=== PATIENT | female | born 1950 | race Caucasian/White ===

== ENCOUNTER → 2017-03-15 | Outpatient (CLI) | payer MEDICARE ==
[~2017-03-15] MED LIST: ASPI-498 OR; CIPR-217 PO; LEVO25TA6 PO; LISI-275 PO; METF-312 PO; OMEP20TA37 PO
[2017-03-15 09:36] LABS: Basophils # (auto) 0.1 uL; Basophils % (auto) 0.7 % (0.0-2.0); Eosinophils # (auto) 0.3 uL; Eosinophils % (auto) 3.4 % (0.0-7.0); Hematocrit 43.1 % (36.0-46.0); Hemoglobin 14.9 g/dL (12.2-16.2); Lymphocytes # (auto) 1.9 uL; Lymphocytes % (auto) 25.3 % (10.0-50.0); Mean Corpuscular Hemoglobin 35.1 pg (28.0-32.0); Mean Corpuscular Hgb Conc. 34.7 g/dL (32.0-36.0); Mean Corpuscular Volume 101.1 fL (80.0-100.0); Mean Platelet Volume 7.9 fL (7.4-10.4); Monocytes # (auto) 0.6 uL; Monocytes % (auto) 8.4 % (0.0-12.0); Neutrophils # (auto) 4.6 uL; Neutrophils % (auto) 62.2 % (37.0-80.0); Platelet Count (auto) 287 10^3/uL (140-450); Red Cell Distribution Width 13.2 % (11.6-16.0); SUSPECT VIEW TRANSMISSION; White Blood Cell 7.4 10^3/uL (4.4-10.8)
[2017-03-15 09:43] LABS: Urine Bilirubin Negative (Negative); Urine Blood Negative /uL (Negative); Urine Color Yellow (Yellow); Urine Glucose Normal (Normal); Urine Ketone Negative (Negative); Urine Mucus FEW (None Seen); Urine Nitrite Negative (Negative); Urine RBC <1 /hpf (0 - 4); Urine Squamous Epithelial Cell FEW /hpf (<5); Urine Urobilinogen Normal (Negative); Urine pH 6.5 (5.0-8.0)
[2017-03-15 09:53] LABS: Albumin 3.9 g/dL (3.4-5.0); BUN/Creatinine Ratio 14.4; Bilirubin, Total 0.5 mg/dL (0.2-1.0); Calcium 9.2 mg/dL (8.5-10.1); Potassium 4.1 mmol/L (3.5-5.1)
== END | disposition home or self-care (01) ==
LOC: LAB 08:21
PROVIDERS: ATTEND Internal Medicine
DX: Z00.00 Encounter for general adult medical examination without abnormal findings (principal); E78.5 Hyperlipidemia, unspecified; E55.9 Vitamin D deficiency, unspecified; I10 Essential (primary) hypertension; E11.9 Type 2 diabetes mellitus without complications
CPT/HCPCS: 36415; 80053; 80061; 81001; 82043; 82306; 83036; 84439; 84443; 84481; 85025

== ENCOUNTER → 2017-06-24 | Outpatient (CLI) | payer MEDICARE ==
[~2017-06-24] MED LIST changes: -METF-312 PO; +METF-370 PO
[2017-06-24 09:10] LABS: Cholesterol 263 mg/dL (< 200); HDL Cholesterol 40 mg/dL (40-59); LDL Cholesterol 209 mg/dL (< 100); Triglycerides 133 mg/dL (< 150)
== END | disposition home or self-care (01) ==
LOC: LAB 08:27
PROVIDERS: ATTEND Internal Medicine
DX: E78.2 Mixed hyperlipidemia (principal); R73.09 Other abnormal glucose
CPT/HCPCS: 36415; 80061; 82607; 83036; 84443

== ENCOUNTER → 2017-07-19 | Outpatient (CLI) | payer MEDICARE ==
[2017-07-19 08:48] LABS: Urine RBC None Seen /hpf (0 - 4)
[2017-07-19 09:42] LABS: Urine Bilirubin Negative (Negative); Urine Blood Negative /uL (Negative); Urine Color Yellow (Yellow); Urine Glucose Normal (Normal); Urine Ketone Negative (Negative); Urine Nitrite Negative (Negative); Urine Squamous Epithelial Cell MOD /hpf (<5); Urine Urobilinogen Normal (Negative); Urine pH 6.5 (5.0-8.0)
== END | disposition home or self-care (01) ==
LOC: LAB 08:41
PROVIDERS: ATTEND Internal Medicine
DX: N39.0 Urinary tract infection, site not specified (principal); E11.9 Type 2 diabetes mellitus without complications; I10 Essential (primary) hypertension
CPT/HCPCS: 81001

== ENCOUNTER → 2018-02-23 | Outpatient (CLI) | payer MEDICARE ==
[2018-02-23 09:03] LABS: Basophils # (auto) 0.1 uL; Basophils % (auto) 1.1 % (0.0-2.0); Eosinophils # (auto) 0.3 uL; Eosinophils % (auto) 4.3 % (0.0-7.0); Hematocrit 36.9 % (36.0-46.0); Hemoglobin 12.7 g/dL (12.2-16.2); Lymphocytes # (auto) 2.7 uL; Lymphocytes % (auto) 38.4 % (10.0-50.0); Mean Corpuscular Hemoglobin 34.8 pg (28.0-32.0); Mean Corpuscular Hgb Conc. 34.3 g/dL (32.0-36.0); Mean Corpuscular Volume 101.4 fL (80.0-100.0); Monocytes # (auto) 0.8 uL; Monocytes % (auto) 11.4 % (0.0-12.0); Neutrophils # (auto) 3.1 uL; Neutrophils % (auto) 44.8 % (37.0-80.0); Nucleated Red Blood Cells % 0.1 %; Platelet Count (auto) 270 10^3/uL (140-450); Red Blood Cells 3.64 10^6/uL (4.0-5.20); Red Cell Distribution Width 12.9 % (11.8-14.3)
[2018-02-23 09:56] LABS: Albumin 3.6 g/dL (3.4-5.0); BUN/Creatinine Ratio 18.6; Bilirubin, Total 0.5 mg/dL (0.2-1.0); Calcium 9.1 mg/dL (8.5-10.1); Potassium 4.1 mmol/L (3.5-5.1); Total Protein 7.4 g/dL (6.4-8.2)
[2018-02-23 10:26] LABS: Free T3 2.81 pg/mL (2.3-4.2); Free T4 (Free Thyroxine) 1.23 ng/dL (0.89-1.76)
== END | disposition home or self-care (01) ==
LOC: LAB 08:42
PROVIDERS: ATTEND Physician Assistant
DX: E03.9 Hypothyroidism, unspecified (principal); E78.2 Mixed hyperlipidemia; E11.9 Type 2 diabetes mellitus without complications; M94.20 Chondromalacia, unspecified site; K21.9 Gastro-esophageal reflux disease without esophagitis; Z87.891 Personal history of nicotine dependence; Z79.899 Other long term (current) drug therapy; Z79.82 Long term (current) use of aspirin
CPT/HCPCS: 36415; 80053; 80061; 82306; 83036; 84439; 84443; 84481; 85025

== ENCOUNTER → 2019-04-02 | Outpatient (CLI) | payer MEDICARE ==
[2019-04-02 09:26] LABS: Basophils # (auto) 0.1 uL; Eosinophils # (auto) 0.3 uL; Hematocrit 38.7 % (36.0-46.0); Mean Corpuscular Hemoglobin 34.6 pg (28.0-32.0); Monocytes # (auto) 0.6 uL; Nucleated Red Blood Cells % 0.1 %
[2019-04-02 09:28] LABS: Basophils % (auto) 2.2 % (0.0-2.0); Eosinophils % (auto) 6.3 % (0.0-7.0); Hemoglobin 13.2 g/dL (12.2-16.2); Lymphocytes % (auto) 38.4 % (10.0-50.0); Mean Corpuscular Volume 101.7 fL (80.0-100.0); Monocytes % (auto) 12.5 % (0.0-12.0); Neutrophils # (auto) 2.1 uL; Neutrophils % (auto) 40.6 % (37.0-80.0); Platelet Count (auto) 256 10^3/uL (140-450); Red Cell Distribution Width 12.9 % (11.8-14.3); White Blood Cell 5.1 10^3/uL (4.4-10.8)
[2019-04-02 09:43] LABS: Albumin 3.8 g/dL (3.4-5.0); Calcium 9.4 mg/dL (8.5-10.1); Potassium 4.5 mmol/L (3.5-5.1)
[2019-04-02 09:46] LABS: BUN/Creatinine Ratio 22.6; Bilirubin, Total 0.5 mg/dL (0.2-1.0); Total Protein 7.8 g/dL (6.4-8.2)
== END | disposition home or self-care (01) ==
LOC: LAB 08:43
PROVIDERS: ATTEND Physician Assistant
DX: E78.2 Mixed hyperlipidemia (principal); I12.9 Hypertensive chronic kidney disease with stage 1 through stage 4 chronic kidney disease, or unspecified chronic kidney disease; E11.22 Type 2 diabetes mellitus with diabetic chronic kidney disease; N18.3 Chronic kidney disease, stage 3 (moderate); E11.69 Type 2 diabetes mellitus with other specified complication; D53.9 Nutritional anemia, unspecified; R07.89 Other chest pain; R00.2 Palpitations; E03.9 Hypothyroidism, unspecified
CPT/HCPCS: 36415; 80053; 80061; 83036; 84443; 85025

== ENCOUNTER → 2019-12-20 | Emergency (ER) | payer MEDICARE ==
[~2019-12-20] VITALS: Ht 165.1 cm; Wt 83.9 kg
[~2019-12-20] MED LIST changes: -CIPR-217 PO; +CIPR500T4 PO; +LORazepam 0.5 MG TAB PO ONE
[2019-12-20 10:36] LABS: Basophils # (auto) 0.1 uL; Eosinophils # (auto) 0.2 uL; Lymphocytes # (auto) 1.9 uL; Lymphocytes % (auto) 24.7 % (10.0-50.0); Monocytes # (auto) 0.5 uL; Neutrophils # (auto) 5.1 uL; White Blood Cell 7.7 10^3/uL (4.4-10.8)
[2019-12-20 10:37] LABS: Basophils % (auto) 1.3 % (0.0-2.0); Eosinophils % (auto) 2.4 % (0.0-7.0); Hematocrit 40.9 % (36.0-46.0); Hemoglobin 13.9 g/dL (12.2-16.2); Mean Corpuscular Hemoglobin 34.8 pg (28.0-32.0); Mean Corpuscular Volume 102.3 fL (80.0-100.0); Monocytes % (auto) 6.2 % (0.0-12.0); Neutrophils % (auto) 65.4 % (37.0-80.0); Platelet Count (auto) 279 10^3/uL (140-450); Red Cell Distribution Width 13.5 % (11.8-14.3)
[2019-12-20 10:53] LABS: Albumin 3.6 g/dL (3.4-5.0); Anion Gap 6 (5-15); Blood Urea Nitrogen 15 mg/dL (7-18); Calcium 9.3 mg/dL (8.5-10.1); Carbon Dioxide 24 mmol/L (21-32); Chloride 110 mmol/L (98-107); Glucose 190 mg/dL (74-106); Potassium 4.2 mmol/L (3.5-5.1); Sodium 140 mmol/L (136-145)
[2019-12-20 10:59] LABS: Alanine Aminotransferase 37 U/L (13-56); Alkaline Phosphatase 93 U/L (45-117); Aspartate Aminotransferase 27 U/L (15-37); Bilirubin, Total 0.6 mg/dL (0.2-1.0); GFR African American 60 mL/min; GFR Non-African American 50 mL/min; Total Protein 7.7 g/dL (6.4-8.2)
[2019-12-20 12:07] LABS: Urine WBC None Seen /hpf (0 - 5)
[2019-12-20 12:40] LABS: Urine Bacteria FEW /hpf (None Seen); Urine Blood Negative /uL (Negative); Urine Specific Gravity 1.016 (1.001-1.035)
[2019-12-20 12:52] VITALS: BP 117/55
== END | disposition home or self-care (01) ==
LOC: ER 09:58
DX: R42 Dizziness and giddiness (principal); E11.65 Type 2 diabetes mellitus with hyperglycemia; K21.9 Gastro-esophageal reflux disease without esophagitis; E78.5 Hyperlipidemia, unspecified; I10 Essential (primary) hypertension; F17.210 Nicotine dependence, cigarettes, uncomplicated; Z90.710 Acquired absence of both cervix and uterus
CPT/HCPCS: 36415; 70450; 71046; 80053; 81001; 84484; 85025; 93005

== ENCOUNTER 2020-09-29 15:25 | Emergency (ER) | payer MEDICARE ==
[~2020-09-29] VITALS: Ht 165.1 cm; Wt 83.9 kg
[~2020-09-29 15:25] MED LIST changes: -LORazepam 0.5 MG TAB PO ONE
[2020-09-29 15:35] VITALS: BP 147/70
== END 2020-09-30 00:57 | disposition left against medical advice (07) ==
LOC: ER 15:40
DX: I24.9 Acute ischemic heart disease, unspecified (principal); E11.9 Type 2 diabetes mellitus without complications; K21.9 Gastro-esophageal reflux disease without esophagitis; I10 Essential (primary) hypertension; Z79.899 Other long term (current) drug therapy; Z79.82 Long term (current) use of aspirin; Z88.5 Allergy status to narcotic agent
CPT/HCPCS: 71046; 93005

== ENCOUNTER → 2020-11-07 | Outpatient (CLI) | payer MEDICARE ==
[2020-11-07 07:43] LABS: Eosinophils # (auto) 0.3 10 ^3/uL (0-0.8); Monocytes # (auto) 0.7 10 ^3/uL (0-1.3); Monocytes % (auto) 12.7 % (0.0-12.0); Neutrophils # (auto) 2.1 10 ^3/uL (1.6-8.6)
[2020-11-07 07:44] LABS: Basophils # (auto) 0 10 ^3/uL (0-0.2); Basophils % (auto) 0.7 % (0.0-2.0); Eosinophils % (auto) 5.6 % (0.0-7.0); Hematocrit 38.6 % (36.0-46.0); Hemoglobin 13.3 g/dL (12.2-16.2); Lymphocytes # (auto) 2.4 10 ^3/uL (0.4-5.4); Lymphocytes % (auto) 43.5 % (10.0-50.0); Mean Corpuscular Hemoglobin 34.7 pg (28.0-32.0); Mean Corpuscular Hgb Conc. 34.5 g/dL (32.0-36.0); Mean Corpuscular Volume 100.8 fL (80.0-100.0); Neutrophils % (auto) 37.5 % (37.0-80.0); Platelet Count (auto) 298 10^3/uL (140-450); Red Blood Cells 3.83 10^6/uL (4.0-5.20); Red Cell Distribution Width 13.3 % (11.8-14.3); White Blood Cell 5.6 10^3/uL (4.4-10.8)
[2020-11-07 08:11] LABS: Potassium 4.2 mmol/L (3.5-5.1)
[2020-11-07 08:30] LABS: Albumin 3.7 g/dL (3.4-5.0); BUN/Creatinine Ratio 19.3; Bilirubin, Total 0.7 mg/dL (0.2-1.0); Calcium 9.6 mg/dL (8.5-10.1)
== END | disposition home or self-care (01) ==
LOC: LAB 07:21
PROVIDERS: ATTEND Physician Assistant
DX: N18.30 Chronic kidney disease, stage 3 unspecified (principal); E03.9 Hypothyroidism, unspecified; D53.9 Nutritional anemia, unspecified; K21.9 Gastro-esophageal reflux disease without esophagitis; E55.9 Vitamin D deficiency, unspecified
CPT/HCPCS: 36415; 80053; 80061; 82306; 84443; 85025

== ENCOUNTER 2020-11-16 13:54 | Inpatient (IN) | payer MEDICARE ==
[~2020-11-16] VITALS: Ht 165.1 cm; Wt 98.9 kg
[2020-11-16] VITALS (30 sets, daily range): BP systolic 71–113; BP diastolic 29–75
[2020-11-16] MEDS ORDERED: HEPARIN 1,000 UNITS/ml 1ML VIAL IV ONE (14:15)
[2020-11-16] MEDS ORDERED: MORPHINE SULFATE 4 MG/ML SYR/VIAL IV ONE (14:15)
[2020-11-16] MEDS ORDERED: LIDOCAINE 2%HCL (LOCAL ANESTH.) INJ 20ML MDV ONE (14:34)
[2020-11-16] MEDS ORDERED: IODIXANOL 320MG/ML 100ML BTL IV ONE (14:34)
[2020-11-16 14:35] LABS: Basophils # (auto) 0 10 ^3/uL (0-0.2); Hemoglobin 12.8 g/dL (12.2-16.2); Lymphocytes # (auto) 2.3 10 ^3/uL (0.4-5.4); Monocytes # (auto) 0.7 10 ^3/uL (0-1.3); Neutrophils # (auto) 4.2 10 ^3/uL (1.6-8.6); Nucleated Red Blood Cells % 0.1 %
[2020-11-16 14:37] LABS: Basophils % (auto) 0.3 % (0.0-2.0); Eosinophils # (auto) 0.3 10 ^3/uL (0-0.8); Eosinophils % (auto) 3.4 % (0.0-7.0); Hematocrit 36.9 % (36.0-46.0); Lymphocytes % (auto) 30.5 % (10.0-50.0); Mean Corpuscular Hemoglobin 35.2 pg (28.0-32.0); Mean Corpuscular Hgb Conc. 34.7 g/dL (32.0-36.0); Mean Corpuscular Volume 101.4 fL (80.0-100.0); Monocytes % (auto) 9.6 % (0.0-12.0); Neutrophils % (auto) 56.2 % (37.0-80.0); Platelet Count (auto) 256 10^3/uL (140-450); Red Blood Cells 3.64 10^6/uL (4.0-5.20); Red Cell Distribution Width 13.4 % (11.8-14.3); White Blood Cell 7.6 10^3/uL (4.4-10.8)
[2020-11-16] MEDS ORDERED: MIDAZOLAM HCL 1MG/1ML-2 ML VIAL ONE (14:40)
[2020-11-16] MEDS ORDERED: ATROPINE SULF 1 MG/10ml SYR ONE ×2 (14:40→15:17)
[2020-11-16] MEDS ORDERED: ADENOSINE 6 MG/2 ML INJ IV ONE (14:40)
[2020-11-16] MEDS ORDERED: ANGIOMAX 250 MG VIAL IV ONE (14:40)
[2020-11-16] MEDS ORDERED: HEPARIN SODIUM (PORCINE) 5000 UNITS/ML 1ML VIAL ONE (14:40)
[2020-11-16] MEDS ORDERED: niCARdipine 25 MG/10 ML VIAL IV ONE (14:40)
[2020-11-16] MEDS ORDERED: fentaNYL CITRATE 100 MCG/2 ML VL ONE (14:40)
[2020-11-16] MEDS ORDERED: SODIUM CHL 0.9% 50 ML ONE (14:41)
[2020-11-16] MEDS ORDERED: EPINEPHrine HCL 1 MG/10 ML SYRG ONE (14:41)
[2020-11-16 14:51] LABS: Albumin 3.9 g/dL (3.4-5.0); Anion Gap 7 (5-15); Blood Urea Nitrogen 17 mg/dL (7-18); Calcium 8.9 mg/dL (8.5-10.1); Carbon Dioxide 20 mmol/L (21-32); Chloride 112 mmol/L (98-107); Glucose 117 mg/dL (74-106); Magnesium 2.2 mg/dL (1.6-2.6); Sodium 139 mmol/L (136-145)
[2020-11-16 14:56] LABS: Alanine Aminotransferase 28 U/L (13-56); Alkaline Phosphatase 109 U/L (45-117); Aspartate Aminotransferase 22 U/L (15-37); BUN/Creatinine Ratio 15.5; Bilirubin, Total 0.4 mg/dL (0.2-1.0); GFR African American 63 mL/min; GFR Non-African American 52 mL/min; INR 0.97 (0.9-1.15); Partial Thromboplastin Time 28.8 sec (23.0-31.2); Total Protein 8.1 g/dL (6.4-8.2)
[2020-11-16] MEDS ORDERED: EPTIFIBATIDE INJ (2MG/ML) 10ML VIAL IV ONE (15:05)
[2020-11-16] MEDS ORDERED: TICAGRELOR 90 MG TAB ONE (15:39)
[2020-11-16] MEDS ORDERED: ASPirin 325 MG TAB ONE (15:40)
[2020-11-16] MEDS ORDERED: NITROGLYCERIN 0.4 MG SL TAB SL PRN (16:00)
[2020-11-16] MEDS ORDERED: SODIUM CHLORIDE 0.9% 1,000 ML IV ONE (16:00)
[2020-11-16] MEDS ORDERED: NICOTINE 21MG/24 HR TOPICAL PATCH TD ONE (16:15)
[2020-11-16] MEDS ORDERED: SODIUM CHLORIDE 0.9% 1,000 ML IV SCH (16:30)
[2020-11-16] MEDS ORDERED: NOREPINEPHRINE 8 MG/250ML KIT 250 ML IV ONE (16:46)
[2020-11-16] MEDS: NOREPINEPHRINE 8 MG/250ML KIT 250 ML IV SCH (17:00)
[2020-11-16] MEDS ORDERED: MORPHINE SULF INJ 2 MG/ML SYRINGE 1ML ONE (21:31)
[2020-11-16] MEDS: MORPHINE SULF INJ 2 MG/ML SYRINGE 1ML IV PRN ×2 (21:35→21:54)
[2020-11-16] MEDS ORDERED: ATORVASTATIN 20 MG TAB PO SCH ×2 (22:00)
[2020-11-16] MEDS ORDERED: TICAGRELOR 90 MG TAB PO SCH (22:00)
[2020-11-17] VITALS (82 sets, daily range): BP systolic 76–153; BP diastolic 36–110
[2020-11-17 00:37] LABS: Basophils # (auto) 0.1 10 ^3/uL (0-0.2); Eosinophils # (auto) 0.2 10 ^3/uL (0-0.8); Eosinophils % (auto) 2.1 % (0.0-7.0); Hematocrit 32.4 % (36.0-46.0); Hemoglobin 11.2 g/dL (12.2-16.2); Lymphocytes # (auto) 2.4 10 ^3/uL (0.4-5.4); Lymphocytes % (auto) 32.3 % (10.0-50.0); Mean Corpuscular Hemoglobin 35.2 pg (28.0-32.0); Mean Corpuscular Hgb Conc. 34.6 g/dL (32.0-36.0); Mean Corpuscular Volume 101.9 fL (80.0-100.0); Monocytes # (auto) 0.9 10 ^3/uL (0-1.3); Monocytes % (auto) 11.3 % (0.0-12.0); Neutrophils % (auto) 53.3 % (37.0-80.0); Platelet Count (auto) 225 10^3/uL (140-450); Red Blood Cells 3.18 10^6/uL (4.0-5.20); Red Cell Distribution Width 13.3 % (11.8-14.3); White Blood Cell 7.6 10^3/uL (4.4-10.8)
[2020-11-17 00:54] LABS: Albumin 3.3 g/dL (3.4-5.0); BUN/Creatinine Ratio 15.5; Calcium 8.2 mg/dL (8.5-10.1); Potassium 4.3 mmol/L (3.5-5.1)
[2020-11-17 00:57] LABS: Bilirubin, Total 0.5 mg/dL (0.2-1.0); Total Protein 6.4 g/dL (6.4-8.2)
[2020-11-17] MEDS ORDERED: SODIUM BICARBONATE 8.4% INJ 50ML SYRINGE ONE (02:25)
[2020-11-17] MEDS: SODIUM BICARBONATE 50ML VIAL 50 ML in SOD CHL 0.45% 1,000 ML IV SCH ×2 (02:30→13:38)
[2020-11-17] MEDS: NOREPINEPHRINE 8 MG/250ML KIT 250 ML IV SCH ×3 (05:57→19:31)
[2020-11-17] MEDS ORDERED: ONDANSETRON HCL 4 MG/2 ML VIAL ONE (07:18)
[2020-11-17] MEDS: ASPirin 81 mg TAB PO SCH (09:14)
[2020-11-17] MEDS: TICAGRELOR 90 MG TAB PO SCH ×2 (09:15→21:35)
[2020-11-17] MEDS: POTASSIUM CHL 20MEQ/100ML 100 ML IV SCH (10:00)
[2020-11-17] MEDS ORDERED: ASPirin 81 mg TAB PO SCH (10:00)
[2020-11-17 10:33] LABS: Basophils # (auto) 0.1 10 ^3/uL (0-0.2); Eosinophils # (auto) 0 10 ^3/uL (0-0.8); Monocytes # (auto) 1.1 10 ^3/uL (0-1.3)
[2020-11-17 10:35] LABS: Basophils % (auto) 0.8 % (0.0-2.0); Eosinophils % (auto) 0.2 % (0.0-7.0); Hematocrit 35.1 % (36.0-46.0); Hemoglobin 11.8 g/dL (12.2-16.2); Lymphocytes # (auto) 1.3 10 ^3/uL (0.4-5.4); Lymphocytes % (auto) 10.6 % (10.0-50.0); Mean Corpuscular Hemoglobin 34.7 pg (28.0-32.0); Mean Corpuscular Hgb Conc. 33.5 g/dL (32.0-36.0); Mean Corpuscular Volume 103.5 fL (80.0-100.0); Monocytes % (auto) 9.4 % (0.0-12.0); Neutrophils # (auto) 9.3 10 ^3/uL (1.6-8.6); Nucleated Red Blood Cells % 0.2 %; Platelet Count (auto) 266 10^3/uL (140-450); Red Blood Cells 3.39 10^6/uL (4.0-5.20); Red Cell Distribution Width 13.4 % (11.8-14.3); White Blood Cell 11.8 10^3/uL (4.4-10.8)
[2020-11-17 10:53] LABS: Amylase 37 U/L (25-115); BUN/Creatinine Ratio 13.9; Calcium 8.4 mg/dL (8.5-10.1); Lipase 45 U/L (73-393); Potassium 4.1 mmol/L (3.5-5.1)
[2020-11-17] MEDS: SUCRALFATE 1 GM/10 ML ORAL SUSP PO SCH ×3 (11:27→21:35)
[2020-11-17] MEDS ORDERED: DEXTROSE (50%) 50ML SYRG IV PRN (12:30)
[2020-11-17] MEDS: cefTRIAXone 1GM/50ML D5W 50 ML IV SCH (13:38)
[2020-11-17] MEDS: NICOTINE 14 MG/24HR TOPICAL PATCH TD SCH (13:39)
[2020-11-17] MEDS: ONDANSETRON HCL 4 MG/2 ML VIAL IV PRN (14:48)
[2020-11-17] MEDS: ALPRAZolam 0.25 MG TAB PO PRN ×2 (14:48→22:13)
[2020-11-17 15:03] LABS: Urine WBC None Seen /hpf (0 - 5)
[2020-11-17 15:33] LABS: Urine Bacteria NONE SEEN /hpf (None Seen); Urine Blood Negative /uL (Negative); Urine Specific Gravity 1.004 (1.001-1.035)
[2020-11-17] MEDS: InsuLIN REG 1unit/0.01ml Soln (100units/ml) SC SCH ×2 (17:16→22:00)
[2020-11-17] MEDS: ACCU-CHEK COMFORT CURVE STRIP VI SCH ×2 (17:18→22:19)
[2020-11-17] MEDS ORDERED: SIMETHICONE 80 MG CHEWABLE TABLET PO PRN (17:45)
[2020-11-17] MEDS ORDERED: SODIUM BICARBONATE 50ML VIAL 50 ML in SOD CHL 0.45% 1,000 ML IV SCH (18:15)
[2020-11-17] MEDS: SIMETHICONE 80 MG CHEWABLE TABLET PO PRN (18:50)
[2020-11-17] MEDS: EZETIMIBE 10MG TAB PO SCH (21:36)
[2020-11-17] MEDS: MEPERIDINE HCL (25 MG/ML) 1ML VIAL IV PRN (21:37)
[2020-11-17] MEDS ORDERED: PANTOPRAZOLE 40 MG/10 ML VIAL INJ IV SCH (22:00)
[2020-11-18] VITALS (24 sets, daily range): BP systolic 104–172; BP diastolic 48–118
[2020-11-18] MEDS: MEPERIDINE HCL (25 MG/ML) 1ML VIAL IV PRN (02:05)
[2020-11-18] MEDS: ONDANSETRON HCL 4 MG/2 ML VIAL IV PRN (02:06)
[2020-11-18 04:26] LABS: Basophils # (auto) 0.1 10 ^3/uL (0-0.2); Basophils % (auto) 0.7 % (0.0-2.0); Eosinophils # (auto) 0 10 ^3/uL (0-0.8); Eosinophils % (auto) 0.3 % (0.0-7.0); Hematocrit 33.9 % (36.0-46.0); Hemoglobin 11.7 g/dL (12.2-16.2); Lymphocytes # (auto) 1.1 10 ^3/uL (0.4-5.4); Lymphocytes % (auto) 11.2 % (10.0-50.0); Mean Corpuscular Hgb Conc. 34.4 g/dL (32.0-36.0); Mean Corpuscular Volume 101.5 fL (80.0-100.0); Monocytes # (auto) 0.8 10 ^3/uL (0-1.3); Neutrophils # (auto) 7.4 10 ^3/uL (1.6-8.6); Neutrophils % (auto) 78.8 % (37.0-80.0); Platelet Count (auto) 208 10^3/uL (140-450); Red Blood Cells 3.34 10^6/uL (4.0-5.20); Red Cell Distribution Width 13.4 % (11.8-14.3); White Blood Cell 9.4 10^3/uL (4.4-10.8)
[2020-11-18 04:52] LABS: Potassium 3.8 mmol/L (3.5-5.1)
[2020-11-18 04:58] LABS: BUN/Creatinine Ratio 14.1; Bilirubin, Total 0.8 mg/dL (0.2-1.0); Calcium 8.1 mg/dL (8.5-10.1); Total Protein 6.8 g/dL (6.4-8.2)
[2020-11-18] MEDS: InsuLIN REG 1unit/0.01ml Soln (100units/ml) SC SCH ×4 (06:42→22:25)
[2020-11-18] MEDS: SUCRALFATE 1 GM/10 ML ORAL SUSP PO SCH ×4 (06:43→22:19)
[2020-11-18] MEDS: LEVOTHYROXINE SODIUM 25 MCG TAB PO SCH (06:44)
[2020-11-18] MEDS: ACCU-CHEK COMFORT CURVE STRIP VI SCH ×4 (06:44→22:25)
[2020-11-18] MEDS: cefTRIAXone 1GM/50ML D5W 50 ML IV SCH (08:15)
[2020-11-18] MEDS ORDERED: SODIUM BICARBONATE 50ML VIAL 50 ML in SOD CHL 0.45% 1,000 ML IV SCH (08:30)
[2020-11-18] MEDS: ASPirin 81 mg TAB PO SCH (09:00)
[2020-11-18] MEDS: POTASSIUM CHL 20MEQ/100ML 100 ML IV SCH (09:00)
[2020-11-18] MEDS: NICOTINE 14 MG/24HR TOPICAL PATCH TD SCH (09:01)
[2020-11-18] MEDS: EZETIMIBE 10MG TAB PO SCH (09:01)
[2020-11-18] MEDS: TICAGRELOR 90 MG TAB PO SCH ×2 (09:01→22:19)
[2020-11-18] MEDS: PANTOPRAZOLE 40 MG TAB PO SCH ×2 (10:00→22:19)
[2020-11-18] MEDS ORDERED: PIPERACILLIN-TAZOB 3.375GM 100 ML IV SCH (12:00)
[2020-11-18] MEDS: ALPRAZolam 0.25 MG TAB PO PRN (13:49)
[2020-11-18] MEDS ORDERED: levoFLOXacin 750MG 150 ML IV ONE (15:30)
[2020-11-18] MEDS ORDERED: FUROSEMIDE 40 MG/4 ML VIAL IV ONE (15:30)
[2020-11-18] MEDS ORDERED: DOCUSATE SOD 100 MG CAP PO ONE (15:30)
[2020-11-18] MEDS: SIMETHICONE 80 MG CHEWABLE TABLET PO PRN (16:30)
[2020-11-18] MEDS: BISACODYL 5 MG EC TAB PO PRN (17:45)
[2020-11-19] VITALS (12 sets, daily range): BP systolic 110–155; BP diastolic 42–84
[2020-11-19 05:04] LABS: Potassium 3.1 mmol/L (3.5-5.1)
[2020-11-19 05:08] LABS: Calcium 8.1 mg/dL (8.5-10.1)
[2020-11-19] MEDS: SUCRALFATE 1 GM/10 ML ORAL SUSP PO SCH ×4 (06:46→23:08)
[2020-11-19] MEDS: LEVOTHYROXINE SODIUM 25 MCG TAB PO SCH (06:47)
[2020-11-19] MEDS: ACCU-CHEK COMFORT CURVE STRIP VI SCH ×4 (06:47→22:51)
[2020-11-19] MEDS: InsuLIN REG 1unit/0.01ml Soln (100units/ml) SC SCH ×4 (06:47→22:00)
[2020-11-19] MEDS: SIMETHICONE 80 MG CHEWABLE TABLET PO PRN (08:31)
[2020-11-19] MEDS: ASPirin 81 mg TAB PO SCH (09:12)
[2020-11-19] MEDS: TICAGRELOR 90 MG TAB PO SCH ×2 (09:13→23:08)
[2020-11-19] MEDS: EZETIMIBE 10MG TAB PO SCH (09:13)
[2020-11-19] MEDS: PANTOPRAZOLE 40 MG TAB PO SCH ×2 (09:13→23:08)
[2020-11-19] MEDS: NICOTINE 14 MG/24HR TOPICAL PATCH TD SCH (09:13)
[2020-11-19] MEDS: levoFLOXacin 750MG 150 ML IV SCH (10:41)
[2020-11-19] MEDS: POTASSIUM CHL 20 Meq TABLET PO PRN (11:31)
[2020-11-19] MEDS: MEPERIDINE HCL (25 MG/ML) 1ML VIAL IV PRN (17:28)
[2020-11-19] MEDS: ALPRAZolam 0.25 MG TAB PO PRN (23:19)
[2020-11-20] MEDS: BISACODYL 5 MG EC TAB PO PRN (05:17)
[2020-11-20 05:30] VITALS: BP 138/70
[2020-11-20] MEDS: SUCRALFATE 1 GM/10 ML ORAL SUSP PO SCH ×4 (06:51→22:00)
[2020-11-20] MEDS: LEVOTHYROXINE SODIUM 25 MCG TAB PO SCH (06:52)
[2020-11-20] MEDS: ACCU-CHEK COMFORT CURVE STRIP VI SCH ×4 (06:52→22:00)
[2020-11-20] MEDS: InsuLIN REG 1unit/0.01ml Soln (100units/ml) SC SCH ×4 (06:52→22:00)
[2020-11-20 07:02] LABS: BUN/Creatinine Ratio 16.9; Calcium 8.5 mg/dL (8.5-10.1); Potassium 3.4 mmol/L (3.5-5.1)
[2020-11-20 08:00] VITALS: BP 130/57
[2020-11-20] MEDS: levoFLOXacin 750MG 150 ML IV SCH (10:59)
[2020-11-20] MEDS: ASPirin 81 mg TAB PO SCH (10:59)
[2020-11-20] MEDS: TICAGRELOR 90 MG TAB PO SCH ×2 (11:00→22:00)
[2020-11-20] MEDS: PANTOPRAZOLE 40 MG TAB PO SCH ×2 (11:00→22:00)
[2020-11-20] MEDS: EZETIMIBE 10MG TAB PO SCH (11:00)
[2020-11-20] MEDS: NICOTINE 14 MG/24HR TOPICAL PATCH TD SCH (12:16)
[2020-11-20 16:00] VITALS: BP 124/71
[2020-11-20] MEDS: POTASSIUM CHL 20 Meq TABLET PO PRN (17:16)
[2020-11-20 22:00] VITALS: BP 124/61
[2020-11-20] MEDS ORDERED: VANCOMYCIN 1GM/250ML 250 ML IV ONE (22:00)
[2020-11-20] MEDS: METOPROLOL TARTRATE 25 MG TAB PO SCH (22:00)
[2020-11-20] MEDS: VANCOMYCIN 1GM/250ML 250 ML IV SCH (23:16)
[2020-11-21 05:00] VITALS: BP 126/62
[2020-11-21] MEDS: ACCU-CHEK COMFORT CURVE STRIP VI SCH ×2 (06:41→12:17)
[2020-11-21] MEDS: LEVOTHYROXINE SODIUM 25 MCG TAB PO SCH (06:41)
[2020-11-21] MEDS: SUCRALFATE 1 GM/10 ML ORAL SUSP PO SCH ×2 (06:41→09:55)
[2020-11-21] MEDS: InsuLIN REG 1unit/0.01ml Soln (100units/ml) SC SCH ×2 (06:41→11:30)
[2020-11-21 06:52] LABS: Basophils # (auto) 0.1 10 ^3/uL (0-0.2); Basophils % (auto) 0.8 % (0.0-2.0); Eosinophils # (auto) 0.3 10 ^3/uL (0-0.8); Eosinophils % (auto) 4.8 % (0.0-7.0); Hemoglobin 11.6 g/dL (12.2-16.2); Lymphocytes # (auto) 1.4 10 ^3/uL (0.4-5.4); Lymphocytes % (auto) 19.9 % (10.0-50.0); Mean Corpuscular Hemoglobin 35.1 pg (28.0-32.0); Mean Corpuscular Hgb Conc. 35.2 g/dL (32.0-36.0); Mean Corpuscular Volume 99.8 fL (80.0-100.0); Monocytes # (auto) 0.8 10 ^3/uL (0-1.3); Monocytes % (auto) 12.2 % (0.0-12.0); Neutrophils # (auto) 4.3 10 ^3/uL (1.6-8.6); Neutrophils % (auto) 62.3 % (37.0-80.0); Platelet Count (auto) 274 10^3/uL (140-450); Red Blood Cells 3.31 10^6/uL (4.0-5.20); Red Cell Distribution Width 12.9 % (11.8-14.3); White Blood Cell 6.9 10^3/uL (4.4-10.8)
[2020-11-21 07:03] LABS: Potassium 3.7 mmol/L (3.5-5.1)
[2020-11-21 07:17] LABS: BUN/Creatinine Ratio 11.2; Calcium 8.7 mg/dL (8.5-10.1)
[2020-11-21 08:00] VITALS: BP 119/61
[2020-11-21] MEDS: VANCOMYCIN 1GM/250ML 250 ML IV SCH (09:53)
[2020-11-21] MEDS: TICAGRELOR 90 MG TAB PO SCH (09:53)
[2020-11-21] MEDS: ASPirin 81 mg TAB PO SCH (09:53)
[2020-11-21] MEDS: EZETIMIBE 10MG TAB PO SCH (09:53)
[2020-11-21] MEDS: METOPROLOL TARTRATE 25 MG TAB PO SCH (09:54)
[2020-11-21] MEDS: PANTOPRAZOLE 40 MG TAB PO SCH (09:54)
[2020-11-21] MEDS: NICOTINE 14 MG/24HR TOPICAL PATCH TD SCH (09:55)
[2020-11-21 10:00] VITALS: BP 119/61
[2020-11-21] MEDS ORDERED: VANCOMYCIN 1GM/250ML 250 ML IV ONE (10:00)
[2020-11-21] MEDS: MEPERIDINE HCL (25 MG/ML) 1ML VIAL IV PRN (10:12)
[2020-11-21] MEDS: levoFLOXacin 750MG 150 ML IV SCH (12:48)
== END 2020-11-21 13:30 | disposition home or self-care (01) | DRG 246 ==
LOC: ER 13:54 → EDBD 13:54 → ER 14:46 → TELE 16:14 → CATH ICU 16:16 → CENTRAL 11-19 10:00 → TELE-CENTR 11-19 10:09
PROVIDERS: ADMIT Specialist; ATTEND Specialist
PROC: 027034Z Dilation of Coronary Artery, One Artery with Drug-eluting Intraluminal Device, Percutaneous Approach (ICD-10-PCS; principal; 2020-11-16)
PROC: 02C03ZZ Extirpation of Matter from Coronary Artery, One Artery, Percutaneous Approach (ICD-10-PCS; 2020-11-16)
PROC: 4A023N7 Measurement of Cardiac Sampling and Pressure, Left Heart, Percutaneous Approach (ICD-10-PCS; 2020-11-16)
PROC: B211YZZ Fluoroscopy of Multiple Coronary Arteries using Other Contrast (ICD-10-PCS; 2020-11-16)
PROC: B215YZZ Fluoroscopy of Left Heart using Other Contrast (ICD-10-PCS; 2020-11-16)
PROC: B240ZZ3 Ultrasonography of Single Coronary Artery, Intravascular (ICD-10-PCS; 2020-11-16)
PROC: 3E073PZ Introduction of Platelet Inhibitor into Coronary Artery, Percutaneous Approach (ICD-10-PCS; 2020-11-16)
PROC: B41FYZZ Fluoroscopy of Right Lower Extremity Arteries using Other Contrast (ICD-10-PCS; 2020-11-16)
DX: I21.19 ST elevation (STEMI) myocardial infarction involving other coronary artery of inferior wall (principal); J18.9 Pneumonia, unspecified organism; I50.21 Acute systolic (congestive) heart failure; J44.0 Chronic obstructive pulmonary disease with (acute) lower respiratory infection; Z20.822 Contact with and (suspected) exposure to COVID-19; E11.9 Type 2 diabetes mellitus without complications; F17.210 Nicotine dependence, cigarettes, uncomplicated; K21.9 Gastro-esophageal reflux disease without esophagitis; I11.0 Hypertensive heart disease with heart failure; I25.2 Old myocardial infarction; Z79.82 Long term (current) use of aspirin; Z79.890 Hormone replacement therapy; Z79.899 Other long term (current) drug therapy; Z90.710 Acquired absence of both cervix and uterus; Z82.49 Family history of ischemic heart disease and other diseases of the circulatory system; Z83.3 Family history of diabetes mellitus
CPT/HCPCS: 36415; 36600; 71045; 71250; 75710; 76700; 80048; 80053; 81001; 82150; 82805; 82962; 83690; 83735; 83880; 84484; 85025; 85610; 85730; 86850; 86900; 86901; 87081; 87086; 87426; 92928; 92973; 92978; 93005; 93306; 93458; 96361; 96374; 96375; 99152; 99291; C1874; G0378; J0153; J0696; J1815; J1956; J2250; J2405; J2543; J3480; Q9967

== ENCOUNTER 2020-11-24 10:44 | Inpatient (IN) | payer MEDICARE ==
[~2020-11-24] VITALS: Ht 162.6 cm; Wt 85.1 kg
[2020-11-24] MEDS ORDERED: ONDANSETRON HCL 4 MG/2 ML VIAL IV ONE (11:00)
[2020-11-24] MEDS ORDERED: SODIUM CHLORIDE 0.9% 500 ML IVB ONE (11:00)
[2020-11-24 11:33] LABS: Albumin 3.2 g/dL (3.4-5.0); Calcium 8.6 mg/dL (8.5-10.1); Potassium 3.5 mmol/L (3.5-5.1)
[2020-11-24 11:35] LABS: Basophils # (auto) 0.1 10 ^3/uL (0-0.2); Basophils % (auto) 1.1 % (0.0-2.0); Eosinophils # (auto) 0.3 10 ^3/uL (0-0.8); Hematocrit 33.7 % (36.0-46.0); Hemoglobin 11.6 g/dL (12.2-16.2); Lymphocytes # (auto) 1.5 10 ^3/uL (0.4-5.4); Lymphocytes % (auto) 23.2 % (10.0-50.0); Mean Corpuscular Hemoglobin 34.6 pg (28.0-32.0); Mean Corpuscular Hgb Conc. 34.4 g/dL (32.0-36.0); Mean Corpuscular Volume 100.5 fL (80.0-100.0); Monocytes # (auto) 0.9 10 ^3/uL (0-1.3); Monocytes % (auto) 14.2 % (0.0-12.0); Neutrophils # (auto) 3.7 10 ^3/uL (1.6-8.6); Neutrophils % (auto) 56.5 % (37.0-80.0); Platelet Count (auto) 310 10^3/uL (140-450); Red Blood Cells 3.35 10^6/uL (4.0-5.20); Red Cell Distribution Width 13.6 % (11.8-14.3); White Blood Cell 6.6 10^3/uL (4.4-10.8)
[2020-11-24 11:37] LABS: BUN/Creatinine Ratio 11.8; Bilirubin, Total 0.4 mg/dL (0.2-1.0); Total Protein 7.4 g/dL (6.4-8.2)
[2020-11-24] MEDS ORDERED: PIPERACILLIN-TAZOB 3.375GM 100 ML IV ONE (11:45)
[2020-11-24] MEDS ORDERED: MORPHINE SULFATE 4 MG/ML SYR/VIAL IV ONE (12:15)
[2020-11-24] MEDS ORDERED: NITROGLYCERIN 0.4 MG SL TAB SL PRN ×2 (13:15→14:45)
[2020-11-24] MEDS ORDERED: MORPHINE SULF INJ 2 MG/ML SYRINGE 1ML IV PRN ×3 (13:15→14:45)
[2020-11-24] MEDS ORDERED: LISI-646 PO (14:10)
[2020-11-24] MEDS ORDERED: MET25T PO (14:10)
[2020-11-24] MEDS ORDERED: EZET-10 PO (14:10)
[2020-11-24] MEDS ORDERED: ERGO1CAP12 PO (14:10)
[2020-11-24] MEDS ORDERED: CLOP75TA28 PO (14:10)
[2020-11-24] MEDS ORDERED: PANT40T PO (14:10)
[2020-11-24] MEDS ORDERED: LEVO75TA6 PO (14:10)
[2020-11-24] MEDS ORDERED: IBUP800T27 PO (14:10)
[2020-11-24] MEDS ORDERED: LEVO-28 PO (14:10)
[2020-11-24] MEDS ORDERED: BISA1TAB6 PO (14:12)
[2020-11-24] MEDS ORDERED: metroNIDAZOLE 500MG/100ML 100 ML IV ONE (14:45)
[2020-11-24] MEDS ORDERED: ACETAMINOPHEN 325 MG TAB PO PRN (14:45)
[2020-11-24] MEDS ORDERED: LORazepam 0.5 MG TAB PO PRN (14:45)
[2020-11-24] MEDS ORDERED: DEXTROSE (50%) 50ML SYRG IV PRN (14:45)
[2020-11-24] MEDS ORDERED: ALUM & MAG HYDROX-SIMETH LIQ(MAALOX) 30 ML PO PRN (14:45)
[2020-11-24] MEDS ORDERED: GEMFIBROZIL 600 MG TAB PO ONE (14:45)
[2020-11-24] MEDS ORDERED: methylPREDNISolone SOD SUCC 40 MG/ML VL IV ONE (14:45)
[2020-11-24] MEDS ORDERED: PANTOPRAZOLE 40 MG/10 ML VIAL INJ IV ONE (14:45)
[2020-11-24] MEDS ORDERED: ONDANSETRON HCL 4 MG/2 ML VIAL IV PRN (14:45)
[2020-11-24] MEDS ORDERED: DOCUSATE SOD 100 MG CAP PO PRN (14:45)
[2020-11-24 14:48] LABS: Urine Bacteria NONE SEEN /hpf (None Seen); Urine Blood Negative /uL (Negative); Urine Specific Gravity 1.016 (1.001-1.035); Urine WBC 1 /hpf (0 - 5)
[2020-11-24] MEDS ORDERED: LACTULOSE 20Gm/30ML SOLN PO PRN (15:00)
[2020-11-24] MEDS: SODIUM CHLORIDE 0.9% 1,000 ML IV SCH (15:48)
[2020-11-24] MEDS: InsuLIN REG 1unit/0.01ml Soln (100units/ml) SC SCH ×2 (17:00→21:39)
[2020-11-24] MEDS: ACCU-CHEK COMFORT CURVE STRIP VI SCH ×2 (17:14→21:30)
[2020-11-24] MEDS: METOPROLOL TARTRATE 25 MG TAB PO SCH (21:29)
[2020-11-24] MEDS: metroNIDAZOLE 500MG/100ML 100 ML IV SCH (21:30)
[2020-11-24] MEDS: methylPREDNISolone SOD SUCC 40 MG/ML VL IV SCH (21:30)
[2020-11-24] MEDS: PANTOPRAZOLE 40 MG TAB PO SCH (21:30)
[2020-11-25] MEDS: metroNIDAZOLE 500MG/100ML 100 ML IV SCH ×3 (06:34→23:05)
[2020-11-25] MEDS: LEVOTHYROXINE SODIUM 25 MCG TAB PO SCH (06:35)
[2020-11-25] MEDS: ACCU-CHEK COMFORT CURVE STRIP VI SCH ×4 (06:35→23:07)
[2020-11-25] MEDS: InsuLIN REG 1unit/0.01ml Soln (100units/ml) SC SCH ×4 (06:36→22:00)
[2020-11-25 07:56] LABS: Basophils # (auto) 0 10 ^3/uL (0-0.2); Eosinophils # (auto) 0 10 ^3/uL (0-0.8); Hemoglobin 10.9 g/dL (12.2-16.2); Monocytes # (auto) 0.4 10 ^3/uL (0-1.3); Neutrophils # (auto) 6.4 10 ^3/uL (1.6-8.6)
[2020-11-25 07:57] LABS: Basophils % (auto) 0.5 % (0.0-2.0); Hematocrit 32.1 % (36.0-46.0); Lymphocytes % (auto) 12.3 % (10.0-50.0); Mean Corpuscular Hemoglobin 34.1 pg (28.0-32.0); Mean Corpuscular Volume 100.4 fL (80.0-100.0); Neutrophils % (auto) 82.2 % (37.0-80.0); Nucleated Red Blood Cells % 0.1 %; Platelet Count (auto) 330 10^3/uL (140-450); Red Cell Distribution Width 13.4 % (11.8-14.3); White Blood Cell 7.8 10^3/uL (4.4-10.8)
[2020-11-25 08:09] LABS: Calcium 8.7 mg/dL (8.5-10.1); Magnesium 2.4 mg/dL (1.6-2.6); Potassium 3.9 mmol/L (3.5-5.1)
[2020-11-25 08:12] LABS: BUN/Creatinine Ratio 11.8; Bilirubin, Total 0.4 mg/dL (0.2-1.0); Phosphorus 2.8 mg/dL (2.5-4.90); Total Protein 7.1 g/dL (6.4-8.2)
[2020-11-25 08:24] LABS: INR 0.99 (0.9-1.15); Partial Thromboplastin Time 29.7 sec (23.0-31.2)
[2020-11-25] MEDS ORDERED: PANTOPRAZOLE 40 MG/10 ML VIAL INJ IV SCH (10:00)
[2020-11-25 10:03] LABS: Amphetamine Screen, Urine NEGATIVE (NEGATIVE); Barbiturate Scree,Urine NEGATIVE (NEGATIVE); Benzodiazephine Screen, Urine NEGATIVE (NEGATIVE); Cannabinoid Screen, Urine NEGATIVE (NEGATIVE); Cocaine Screen, Urine NEGATIVE (NEGATIVE); Opiate Scree,Urine NEGATIVE (NEGATIVE); Phencyclidine Screen, Urine NEGATIVE (NEGATIVE)
[2020-11-25] MEDS: SODIUM CHLORIDE 0.9% 1,000 ML IV SCH (10:18)
[2020-11-25] MEDS: ASPirin 81 mg TAB PO SCH (10:18)
[2020-11-25] MEDS: methylPREDNISolone SOD SUCC 40 MG/ML VL IV SCH (10:18)
[2020-11-25] MEDS: ENOXAPARIN SOD 40 MG/0.4 ML SYRINGE SC SCH ×2 (10:19→10:24)
[2020-11-25] MEDS: GEMFIBROZIL 600 MG TAB PO SCH (10:19)
[2020-11-25] MEDS: CHOLECALCIFEROL (VITD3) 2,000 UNIT CAP PO SCH (10:19)
[2020-11-25] MEDS: CLOPIDOGREL BISULFATE 75 MG TAB PO SCH (10:19)
[2020-11-25] MEDS: PANTOPRAZOLE 40 MG TAB PO SCH ×2 (10:19→23:07)
[2020-11-25] MEDS: LISINOPRIL 10 MG TAB PO SCH (10:24)
[2020-11-25] MEDS: METOPROLOL TARTRATE 25 MG TAB PO SCH ×2 (10:30→23:07)
[2020-11-25 21:42] VITALS: BP 150/63
[2020-11-25 22:00] VITALS: BP 150/63
[2020-11-26] MEDS: ACCU-CHEK COMFORT CURVE STRIP VI SCH ×2 (05:05→11:36)
[2020-11-26] MEDS: LEVOTHYROXINE SODIUM 25 MCG TAB PO SCH (05:05)
[2020-11-26] MEDS: metroNIDAZOLE 500MG/100ML 100 ML IV SCH ×2 (05:05→14:17)
[2020-11-26] MEDS: InsuLIN REG 1unit/0.01ml Soln (100units/ml) SC SCH ×2 (05:44→11:30)
[2020-11-26 06:06] VITALS: BP 135/68
[2020-11-26 07:19] LABS: BUN/Creatinine Ratio 16.5; Calcium 8.6 mg/dL (8.5-10.1); Magnesium 2.4 mg/dL (1.6-2.6); Potassium 3.7 mmol/L (3.5-5.1)
[2020-11-26 08:10] VITALS: BP 111/63
[2020-11-26] MEDS: ASPirin 81 mg TAB PO SCH (09:56)
[2020-11-26] MEDS: GEMFIBROZIL 600 MG TAB PO SCH (09:56)
[2020-11-26] MEDS: CLOPIDOGREL BISULFATE 75 MG TAB PO SCH (09:57)
[2020-11-26] MEDS: METOPROLOL TARTRATE 25 MG TAB PO SCH (09:57)
[2020-11-26] MEDS: CHOLECALCIFEROL (VITD3) 2,000 UNIT CAP PO SCH (09:58)
[2020-11-26] MEDS: PANTOPRAZOLE 40 MG TAB PO SCH (09:58)
[2020-11-26] MEDS: LISINOPRIL 10 MG TAB PO SCH (09:58)
[2020-11-26] MEDS: ENOXAPARIN SOD 40 MG/0.4 ML SYRINGE SC SCH (09:59)
[2020-11-26] MEDS ORDERED: LACT10SO3 PO (14:08)
[2020-11-26 15:09] VITALS: BP 116/82
== END 2020-11-26 16:40 | disposition home or self-care (01) | DRG 394 ==
LOC: ER 10:44 → TELE 13:09 → TELE-CENTR 11-25 21:43
PROVIDERS: ADMIT Emergency Medicine; ATTEND Internal Medicine
DX: K62.89 Other specified diseases of anus and rectum (principal); E44.0 Moderate protein-calorie malnutrition; K59.04 Chronic idiopathic constipation; K52.9 Noninfective gastroenteritis and colitis, unspecified; I25.5 Ischemic cardiomyopathy; E11.9 Type 2 diabetes mellitus without complications; D64.9 Anemia, unspecified; E03.9 Hypothyroidism, unspecified; I25.2 Old myocardial infarction; E78.5 Hyperlipidemia, unspecified; K21.9 Gastro-esophageal reflux disease without esophagitis; J44.9 Chronic obstructive pulmonary disease, unspecified; D75.89 Other specified diseases of blood and blood-forming organs; I25.10 Atherosclerotic heart disease of native coronary artery without angina pectoris; I11.0 Hypertensive heart disease with heart failure; I50.9 Heart failure, unspecified; K75.9 Inflammatory liver disease, unspecified; Z20.822 Contact with and (suspected) exposure to COVID-19; Z79.02 Long term (current) use of antithrombotics/antiplatelets; Z82.49 Family history of ischemic heart disease and other diseases of the circulatory system; Z83.3 Family history of diabetes mellitus; F17.210 Nicotine dependence, cigarettes, uncomplicated; Z90.710 Acquired absence of both cervix and uterus; Z95.5 Presence of coronary angioplasty implant and graft; E07.9 Disorder of thyroid, unspecified; Z88.5 Allergy status to narcotic agent; Z88.8 Allergy status to other drugs, medicaments and biological substances
CPT/HCPCS: 36415; 74176; 80048; 80053; 80061; 80307; 81001; 82962; 83036; 83690; 83735; 84100; 84484; 85025; 85610; 85730; 87040; 87081; 87086; 87088; 87426; 96365; 96366; 96375; C9113; G0378; J1815; J2405; J2543; J3490

== ENCOUNTER 2020-12-09 10:06 | Emergency (ER) | payer MEDICARE ==
[~2020-12-09] VITALS: Ht 165.1 cm; Wt 79.4 kg
[~2020-12-09 10:06] MED LIST changes: +BISA1TAB6 PO; -CIPR500T4 PO; +CLOP75TA28 PO; +ERGO1CAP12 PO; +EZET-10 PO; +IBUP800T27 PO; +LACT10SO3 PO; +LEVO-28 PO; -LEVO25TA6 PO; +LEVO75TA6 PO; -LISI-275 PO; +LISI20TA28 PO; +MET25T PO; -METF-370 PO; -OMEP20TA37 PO; +PANT40T PO
[2020-12-09 10:52] LABS: Basophils # (auto) 0 10 ^3/uL (0-0.2); Basophils % (auto) 0.6 % (0.0-2.0); Eosinophils # (auto) 0 10 ^3/uL (0-0.8); Monocytes # (auto) 0.6 10 ^3/uL (0-1.3); Neutrophils # (auto) 1.9 10 ^3/uL (1.6-8.6)
[2020-12-09 10:54] LABS: Eosinophils % (auto) 0.5 % (0.0-7.0); Hematocrit 34.7 % (36.0-46.0); Lymphocytes % (auto) 28.9 % (10.0-50.0); Mean Corpuscular Hemoglobin 34.7 pg (28.0-32.0); Mean Corpuscular Hgb Conc. 34.7 g/dL (32.0-36.0); Mean Corpuscular Volume 99.9 fL (80.0-100.0); Nucleated Red Blood Cells % 0.2 %; Red Blood Cells 3.48 10^6/uL (4.0-5.20); White Blood Cell 3.5 10^3/uL (4.4-10.8)
[2020-12-09 11:10] LABS: Albumin 3.2 g/dL (3.4-5.0); Anion Gap 10 (5-15); BUN/Creatinine Ratio 16.1; Blood Urea Nitrogen 18 mg/dL (7-18); Calcium 8.4 mg/dL (8.5-10.1); Carbon Dioxide 17 mmol/L (21-32); Chloride 109 mmol/L (98-107); GFR African American 62 mL/min; GFR Non-African American 51 mL/min; Glucose 95 mg/dL (74-106); Magnesium 2.1 mg/dL (1.6-2.6); Sodium 136 mmol/L (136-145)
[2020-12-09 11:15] LABS: Alanine Aminotransferase 17 U/L (13-56); Alkaline Phosphatase 104 U/L (45-117); Aspartate Aminotransferase 21 U/L (15-37); Bilirubin, Total 0.5 mg/dL (0.2-1.0); Total Protein 7.4 g/dL (6.4-8.2)
[2020-12-09 12:42] VITALS: BP 117/54
== END 2020-12-09 13:44 | disposition home or self-care (01) ==
LOC: ER 10:06
DX: J18.9 Pneumonia, unspecified organism (principal); F41.9 Anxiety disorder, unspecified; E11.9 Type 2 diabetes mellitus without complications; K21.9 Gastro-esophageal reflux disease without esophagitis; E78.5 Hyperlipidemia, unspecified; I10 Essential (primary) hypertension; Z90.49 Acquired absence of other specified parts of digestive tract; Z90.710 Acquired absence of both cervix and uterus; Z87.891 Personal history of nicotine dependence
CPT/HCPCS: 36415; 71045; 80053; 83735; 84484; 85025; 93005

== ENCOUNTER 2021-09-02 11:07 | Emergency (ER) | payer MEDICARE ==
[~2021-09-02] VITALS: Ht 165.1 cm; Wt 83.0 kg
[~2021-09-02 11:07] MED LIST changes: -LEVO-28 PO
[2021-09-02 11:11] VITALS: BP 142/70
[2021-09-02 14:09] LABS: Urine Bacteria FEW /hpf (None Seen); Urine Blood Negative /uL (Negative); Urine Specific Gravity 1.017 (1.001-1.035); Urine WBC 1 /hpf (0 - 5)
[2021-09-02 14:29] LABS: Alcohol, Urine < 3.0 mg/dL (0-10); Amphetamine Screen, Urine NEGATIVE (NEGATIVE); Barbiturate Scree,Urine NEGATIVE (NEGATIVE); Benzodiazephine Screen, Urine NEGATIVE (NEGATIVE); Cocaine Screen, Urine NEGATIVE (NEGATIVE); Opiate Scree,Urine NEGATIVE (NEGATIVE); Phencyclidine Screen, Urine NEGATIVE (NEGATIVE)
[2021-09-02 14:36] LABS: Cannabinoid Screen, Urine POSITIVE (NEGATIVE)
[2021-09-02 14:49] LABS: Hemoglobin 13.4 g/dL (12.2-16.2); Lymphocytes # (auto) 1.7 10 ^3/uL (0.4-5.4); Monocytes # (auto) 0.6 10 ^3/uL (0-1.3); White Blood Cell 6.8 10^3/uL (4.4-10.8)
[2021-09-02 14:51] LABS: Basophils # (auto) 0.1 10 ^3/uL (0-0.2); Basophils % (auto) 0.9 % (0.0-2.0); Eosinophils # (auto) 0.2 10 ^3/uL (0-0.8); Eosinophils % (auto) 2.3 % (0.0-7.0); Hematocrit 39.1 % (36.0-46.0); Mean Corpuscular Hemoglobin 35.2 pg (28.0-32.0); Mean Corpuscular Hgb Conc. 34.3 g/dL (32.0-36.0); Mean Corpuscular Volume 102.4 fL (80.0-100.0); Monocytes % (auto) 8.7 % (0.0-12.0); Neutrophils # (auto) 4.3 10 ^3/uL (1.6-8.6); Neutrophils % (auto) 63.1 % (37.0-80.0); Red Blood Cells 3.82 10^6/uL (4.0-5.20); Red Cell Distribution Width 13.1 % (11.8-14.3)
[2021-09-02 14:52] LABS: Potassium 4.4 mmol/L (3.5-5.1)
[2021-09-02 14:56] LABS: Albumin 3.9 g/dL (3.4-5.0); BUN/Creatinine Ratio 22.1; Calcium 9.2 mg/dL (8.5-10.1)
[2021-09-02 14:58] LABS: Bilirubin, Total 0.5 mg/dL (0.2-1.0)
[2021-09-02 15:33] LABS: Magnesium 2.5 mg/dL (1.6-2.6)
== END 2021-09-02 16:55 | disposition left against medical advice (07) ==
LOC: ER 11:07
DX: R10.32 Left lower quadrant pain (principal); R11.0 Nausea; I25.10 Atherosclerotic heart disease of native coronary artery without angina pectoris; J44.9 Chronic obstructive pulmonary disease, unspecified; E11.9 Type 2 diabetes mellitus without complications; K21.9 Gastro-esophageal reflux disease without esophagitis; E78.5 Hyperlipidemia, unspecified; I10 Essential (primary) hypertension; I25.2 Old myocardial infarction; E03.9 Hypothyroidism, unspecified; Z90.49 Acquired absence of other specified parts of digestive tract; Z90.710 Acquired absence of both cervix and uterus; Z90.89 Acquired absence of other organs; Z87.891 Personal history of nicotine dependence; Z79.82 Long term (current) use of aspirin; Z79.1 Long term (current) use of non-steroidal anti-inflammatories (NSAID); Z79.01 Long term (current) use of anticoagulants; Z79.899 Other long term (current) drug therapy; Z88.5 Allergy status to narcotic agent; Z88.8 Allergy status to other drugs, medicaments and biological substances
CPT/HCPCS: 36415; 71045; 74176; 80053; 80307; 81001; 83735; 84484; 85025; 93005

== ENCOUNTER 2021-11-30 13:27 | Emergency (ER) | payer MEDICARE, OTHER ==
[~2021-11-30] VITALS: Ht 165.1 cm; Wt 83.9 kg
[2021-11-30] MEDS ORDERED: ASPirin 81 mg TAB PO ONE (14:15)
[2021-11-30 14:32] LABS: Basophils # (auto) 0.1 10 ^3/uL (0-0.2); Basophils % (auto) 1.4 % (0.0-2.0); Eosinophils # (auto) 0.2 10 ^3/uL (0-0.8); Hemoglobin 12.7 g/dL (12.2-16.2); Lymphocytes # (auto) 2.2 10 ^3/uL (0.4-5.4); Neutrophils # (auto) 2.6 10 ^3/uL (1.6-8.6); Red Cell Distribution Width 13.3 % (11.8-14.3); White Blood Cell 5.8 10^3/uL (4.4-10.8)
[2021-11-30 14:35] LABS: Eosinophils % (auto) 3.1 % (0.0-7.0); Hematocrit 36.8 % (36.0-46.0); Lymphocytes % (auto) 38.5 % (10.0-50.0); Mean Corpuscular Hemoglobin 34.8 pg (28.0-32.0); Mean Corpuscular Hgb Conc. 34.5 g/dL (32.0-36.0); Mean Corpuscular Volume 100.9 fL (80.0-100.0); Monocytes # (auto) 0.7 10 ^3/uL (0-1.3); Monocytes % (auto) 12.1 % (0.0-12.0); Neutrophils % (auto) 44.9 % (37.0-80.0); Nucleated Red Blood Cells % 0.2 %; Red Blood Cells 3.65 10^6/uL (4.0-5.20)
[2021-11-30 14:44] LABS: Albumin 3.8 g/dL (3.4-5.0); Calcium 8.9 mg/dL (8.5-10.1); Potassium 4.2 mmol/L (3.5-5.1)
[2021-11-30 14:50] LABS: BUN/Creatinine Ratio 18.3; Bilirubin, Total 0.3 mg/dL (0.2-1.0); Total Protein 7.4 g/dL (6.4-8.2)
[2021-11-30 15:53] VITALS: BP 134/75
== END 2021-11-30 16:27 | disposition home or self-care (01) ==
LOC: ER 13:27
DX: R07.89 Other chest pain (principal); F41.9 Anxiety disorder, unspecified; J44.9 Chronic obstructive pulmonary disease, unspecified; E11.9 Type 2 diabetes mellitus without complications; K21.9 Gastro-esophageal reflux disease without esophagitis; E78.5 Hyperlipidemia, unspecified; I10 Essential (primary) hypertension; Z90.710 Acquired absence of both cervix and uterus; Z88.6 Allergy status to analgesic agent
CPT/HCPCS: 36415; 71045; 80053; 84484; 85025; 93005

== ENCOUNTER 2022-02-25 12:31 | Inpatient (IN) | payer OTHER ==
[~2022-02-25] VITALS: Ht 162.6 cm; Wt 84.8 kg
[2022-02-25] MEDS ORDERED: SODIUM CHLORIDE 0.9% 500 ML IVB ONE (13:00)
[2022-02-25] MEDS ORDERED: HYDROmorphone HCL 2 MG/ML VL/or syr IV ONE (13:00)
[2022-02-25] MEDS ORDERED: ONDANSETRON HCL 4 MG/2 ML VIAL IV ONE (13:00)
[2022-02-25 14:06] LABS: Basophils # (auto) 0.1 10 ^3/uL (0-0.2); Eosinophils # (auto) 0.1 10 ^3/uL (0-0.8); Hematocrit 38.6 % (36.0-46.0); Lymphocytes # (auto) 1.3 10 ^3/uL (0.4-5.4); Lymphocytes % (auto) 12.1 % (10.0-50.0); Neutrophils # (auto) 8.9 10 ^3/uL (1.6-8.6); Red Blood Cells 3.78 10^6/uL (4.0-5.20)
[2022-02-25 14:08] LABS: Basophils % (auto) 0.7 % (0.0-2.0); Hemoglobin 13.4 g/dL (12.2-16.2); Mean Corpuscular Hemoglobin 35.3 pg (28.0-32.0); Mean Corpuscular Hgb Conc. 34.6 g/dL (32.0-36.0); Mean Corpuscular Volume 102.2 fL (80.0-100.0); Monocytes # (auto) 0.6 10 ^3/uL (0-1.3); Monocytes % (auto) 5.5 % (0.0-12.0); Neutrophils % (auto) 80.7 % (37.0-80.0); Nucleated Red Blood Cells % 0.1 %; Red Cell Distribution Width 13.1 % (11.8-14.3)
[2022-02-25 14:21] LABS: Albumin 3.8 g/dL (3.4-5.0); BUN/Creatinine Ratio 20.7; Calcium 10.1 mg/dL (8.5-10.1)
[2022-02-25 14:24] LABS: Bilirubin, Total 0.5 mg/dL (0.2-1.0); Total Protein 7.8 g/dL (6.4-8.2)
[2022-02-25] MEDS ORDERED: metroNIDAZOLE 500MG/100ML 100 ML IV ONE (15:15)
[2022-02-25] MEDS ORDERED: NITROGLYCERIN 0.4 MG SL TAB SL PRN (16:30)
[2022-02-25] MEDS ORDERED: ACETAMINOPHEN 325 MG TAB PO PRN (16:30)
[2022-02-25] MEDS ORDERED: ONDANSETRON HCL 4 MG/2 ML VIAL IV PRN (16:30)
[2022-02-25] MEDS ORDERED: HYDROcodone-ACET 5/325MG TAB PO PRN (16:30)
[2022-02-25] MEDS ORDERED: MORPHINE SULFATE INJECTION 2 MG/ML SYRG IV PRN ×2 (16:30)
[2022-02-25] MEDS ORDERED: ERGOCALCIFEROL 50,000 UNIT(1.25MG) CAP PO SCH (16:45)
[2022-02-25] MEDS: SODIUM CHLORIDE 0.9% 1,000 ML IV SCH ×2 (17:04→23:03)
[2022-02-25] MEDS: PIPERACILLIN-TAZOB 3.375GM 100 ML IV SCH (18:09)
[2022-02-25 19:30] VITALS: BP 119/56
[2022-02-25 20:00] VITALS: BP 119/56
[2022-02-25] MEDS ORDERED: CALCIUM CARB 500 MG CHEW TAB PO PRN (20:00)
[2022-02-25] MEDS: CALCIUM CARB 500 MG CHEW TAB PO PRN (20:38)
[2022-02-25 22:00] VITALS: BP 110/52
[2022-02-25] MEDS: METOPROLOL TARTRATE 25 MG TAB PO SCH (22:00)
[2022-02-25] MEDS ORDERED: METF-370 PO (23:27)
[2022-02-26] MEDS: PIPERACILLIN-TAZOB 3.375GM 100 ML IV SCH ×3 (00:27→11:47)
[2022-02-26 05:34] VITALS: BP 120/49
[2022-02-26] MEDS ORDERED: LEVOTHYROXINE SODIUM 25 MCG TAB PO SCH (07:00)
[2022-02-26 07:26] LABS: Basophils # (auto) 0 10 ^3/uL (0-0.2); Basophils % (auto) 0.6 % (0.0-2.0); Eosinophils # (auto) 0.2 10 ^3/uL (0-0.8); Lymphocytes # (auto) 2.4 10 ^3/uL (0.4-5.4); Mean Corpuscular Hemoglobin 35.9 pg (28.0-32.0); Monocytes # (auto) 0.8 10 ^3/uL (0-1.3); Nucleated Red Blood Cells % 0.1 %; White Blood Cell 8.1 10^3/uL (4.4-10.8)
[2022-02-26 07:28] LABS: Eosinophils % (auto) 2.3 % (0.0-7.0); Hematocrit 33.4 % (36.0-46.0); Hemoglobin 11.8 g/dL (12.2-16.2); Mean Corpuscular Hgb Conc. 35.2 g/dL (32.0-36.0); Mean Corpuscular Volume 101.8 fL (80.0-100.0); Monocytes % (auto) 9.5 % (0.0-12.0); Neutrophils # (auto) 4.8 10 ^3/uL (1.6-8.6); Neutrophils % (auto) 58.6 % (37.0-80.0); Red Blood Cells 3.28 10^6/uL (4.0-5.20); Red Cell Distribution Width 12.9 % (11.8-14.3)
[2022-02-26 07:44] LABS: Albumin 3.3 g/dL (3.4-5.0); BUN/Creatinine Ratio 16.1; Calcium 8.8 mg/dL (8.5-10.1); Potassium 4.4 mmol/L (3.5-5.1)
[2022-02-26 07:47] LABS: Bilirubin, Total 0.8 mg/dL (0.2-1.0); Total Protein 6.6 g/dL (6.4-8.2)
[2022-02-26] MEDS ORDERED: GARL400T6 PO (08:24)
[2022-02-26 09:00] VITALS: BP 104/43
[2022-02-26] MEDS ORDERED: LISINOPRIL 20 MG TAB PO SCH (10:00)
[2022-02-26] MEDS ORDERED: ASPirin-EC 81 mg tab PO SCH (10:00)
[2022-02-26] MEDS ORDERED: PANTOPRAZOLE 40 MG TAB PO SCH (10:00)
[2022-02-26] MEDS ORDERED: ENOXAPARIN SOD 40 MG/0.4 ML SYRINGE SC SCH (10:00)
[2022-02-26] MEDS ORDERED: EZETIMIBE 10 MG TABLET PO SCH (10:00)
[2022-02-26] MEDS ORDERED: CLOPIDOGREL BISULFATE 75 MG TAB PO SCH (10:00)
[2022-02-26] MEDS: METOPROLOL TARTRATE 25 MG TAB PO SCH (10:00)
[2022-02-26] MEDS ORDERED: AMOX500T86 PO (11:18)
[2022-02-26] MEDS ORDERED: METR500T PO (11:18)
[2022-02-26] MEDS: SODIUM CHLORIDE 0.9% 1,000 ML IV SCH (11:50)
[2022-02-26 13:00] VITALS: BP 110/58
[2022-02-26] MEDS: CALCIUM CARB 500 MG CHEW TAB PO PRN (14:10)
[2022-02-26 17:00] VITALS: BP 106/59
[2022-02-26 18:26] VITALS: BP 104/43
== END 2022-02-26 19:20 | disposition home or self-care (01) | DRG 391 ==
LOC: EDBD 12:31 → ER 12:31 → OVERFLOW 16:30 → WEST WING 19:25
PROVIDERS: ADMIT Internal Medicine; ATTEND Internal Medicine
DX: K57.32 Diverticulitis of large intestine without perforation or abscess without bleeding (principal); N17.0 Acute kidney failure with tubular necrosis; D72.829 Elevated white blood cell count, unspecified; E11.9 Type 2 diabetes mellitus without complications; F17.210 Nicotine dependence, cigarettes, uncomplicated; I10 Essential (primary) hypertension; I25.10 Atherosclerotic heart disease of native coronary artery without angina pectoris; J44.9 Chronic obstructive pulmonary disease, unspecified; K21.9 Gastro-esophageal reflux disease without esophagitis; Z20.822 Contact with and (suspected) exposure to COVID-19; I25.2 Old myocardial infarction; Z80.3 Family history of malignant neoplasm of breast; Z82.49 Family history of ischemic heart disease and other diseases of the circulatory system; Z83.3 Family history of diabetes mellitus; Z90.710 Acquired absence of both cervix and uterus; Z98.61 Coronary angioplasty status; Z88.8 Allergy status to other drugs, medicaments and biological substances; Z88.5 Allergy status to narcotic agent; Z90.49 Acquired absence of other specified parts of digestive tract
CPT/HCPCS: 36415; 74176; 80053; 82150; 83690; 85025; 93005; 96361; 96365; 96375; G0378; J2405; J2543; J3490

== ENCOUNTER 2022-04-06 11:00 | Emergency (ER) | payer OTHER ==
[~2022-04-06] VITALS: Ht 165.1 cm; Wt 81.6 kg
[~2022-04-06 11:00] MED LIST changes: +AMOX500T86 PO; +GARL400T6 PO; -IBUP800T27 PO; +METF-370 PO; +METR500T PO
[2022-04-06 13:45] VITALS: BP 104/34
[2022-04-06] MEDS ORDERED: CYCL-837 PO (14:30)
[2022-04-06] MEDS ORDERED: ACET-1158 PO (14:30)
[2022-04-06] MEDS ORDERED: ACETAMINOPHEN 325 MG TAB PO ONE (14:45)
== END 2022-04-06 15:02 | disposition home or self-care (01) ==
LOC: ER 11:00
DX: M54.42 Lumbago with sciatica, left side (principal); M54.41 Lumbago with sciatica, right side; M79.662 Pain in left lower leg; M79.661 Pain in right lower leg
CPT/HCPCS: 93970

== ENCOUNTER 2023-04-19 11:56 | Inpatient (IN) | payer OTHER ==
[~2023-04-19] VITALS: Ht 165.1 cm; Wt 82.0 kg
[~2023-04-19 11:56] MED LIST changes: +ACET500T58 PO; +CYCL-837 PO; -LISI20TA28 PO; +LISI20TA56 PO
[2023-04-19 13:11] LABS: Eosinophils # (auto) 0.2 10 ^3/uL (0-0.8); Hemoglobin 12.3 g/dL (12.2-16.2); Lymphocytes # (auto) 1.9 10 ^3/uL (0.4-5.4); Monocytes # (auto) 1.2 10 ^3/uL (0-1.3); Neutrophils # (auto) 4.9 10 ^3/uL (1.6-8.6); White Blood Cell 8.2 10^3/uL (4.4-10.8)
[2023-04-19 13:13] LABS: Basophils # (auto) 0 10 ^3/uL (0-0.2); Basophils % (auto) 0.5 % (0.0-2.0); Eosinophils % (auto) 2.1 % (0.0-7.0); Hematocrit 36.3 % (36.0-46.0); Lymphocytes % (auto) 22.8 % (10.0-50.0); Mean Corpuscular Hemoglobin 34.6 pg (28.0-32.0); Mean Corpuscular Volume 101.6 fL (80.0-100.0); Monocytes % (auto) 14.9 % (0.0-12.0); Neutrophils % (auto) 59.7 % (37.0-80.0); Red Blood Cells 3.57 10^6/uL (4.0-5.20); Red Cell Distribution Width 13.2 % (11.8-14.3)
[2023-04-19 13:27] LABS: Albumin 3.7 g/dL (3.4-5.0); BUN/Creatinine Ratio 16.7 (10.0-20.0); Calcium 9.5 mg/dL (8.5-10.1); Potassium 4.6 mmol/L (3.5-5.1)
[2023-04-19 13:30] LABS: Bilirubin, Total 0.6 mg/dL (0.2-1.0); Total Protein 7.9 g/dL (6.4-8.2)
[2023-04-19 14:33] LABS: Urine Bacteria NONE SEEN /hpf (None Seen); Urine Blood Negative /uL (Negative); Urine Hyaline Cast MOD /lpf (0 - 2); Urine WBC <1 /hpf (0 - 5)
[2023-04-19] MEDS ORDERED: SODIUM CHLORIDE 0.9% 1,000 ML IV ONE (16:45)
[2023-04-19] MEDS ORDERED: cefTRIAXone 1GM/50ML D5W 50 ML IV ONE (16:45)
[2023-04-19] MEDS ORDERED: metroNIDAZOLE 500MG/100ML 100 ML IV ONE (16:45)
[2023-04-19] MEDS ORDERED: LACTULOSE 20Gm/30ML SOLN PO PRN (18:45)
[2023-04-19] MEDS ORDERED: LACTULOSE 20Gm/30ML SOLN PO ONE (18:45)
[2023-04-19] MEDS ORDERED: MORPHINE SULFATE 4 MG/ML SYR/VIAL IV ONE (18:45)
[2023-04-19] MEDS ORDERED: ONDANSETRON HCL 4 MG/2 ML VIAL IV ONE (18:45)
[2023-04-19] MEDS ORDERED: DEXTROSE (50%) 50ML SYRG IV PRN (19:00)
[2023-04-19] MEDS: ACCU-CHEK COMFORT CURVE STRIP VI SCH (23:04)
[2023-04-19] MEDS: InsuLIN REG 1unit/0.01ml Soln (100units/ml) SC SCH (23:04)
[2023-04-19] MEDS: METOPROLOL TARTRATE 25 MG TAB PO SCH (23:36)
[2023-04-20] MEDS: metroNIDAZOLE 500MG/100ML 100 ML IV SCH ×3 (00:42→18:06)
[2023-04-20] MEDS: ACETAMINOPHEN 325 MG TAB PO PRN ×3 (02:15→18:07)
[2023-04-20 04:39] LABS: Eosinophils # (auto) 0.3 10 ^3/uL (0-0.8); Eosinophils % (auto) 4.4 % (0.0-7.0); Hemoglobin 11.5 g/dL (12.2-16.2); Neutrophils # (auto) 2.5 10 ^3/uL (1.6-8.6)
[2023-04-20 04:41] LABS: Basophils # (auto) 0.1 10 ^3/uL (0-0.2); Basophils % (auto) 0.8 % (0.0-2.0); Hematocrit 33.4 % (36.0-46.0); Lymphocytes # (auto) 2.8 10 ^3/uL (0.4-5.4); Lymphocytes % (auto) 41.9 % (10.0-50.0); Mean Corpuscular Hemoglobin 34.9 pg (28.0-32.0); Mean Corpuscular Hgb Conc. 34.5 g/dL (32.0-36.0); Mean Corpuscular Volume 101.1 fL (80.0-100.0); Neutrophils % (auto) 37.9 % (37.0-80.0); Red Cell Distribution Width 12.8 % (11.8-14.3); White Blood Cell 6.7 10^3/uL (4.4-10.8)
[2023-04-20 04:54] LABS: Albumin 3.6 g/dL (3.4-5.0); Calcium 8.8 mg/dL (8.5-10.1); Potassium 4.7 mmol/L (3.5-5.1)
[2023-04-20 04:59] LABS: BUN/Creatinine Ratio 16.2 (10.0-20.0); Bilirubin, Total 0.6 mg/dL (0.2-1.0); Total Protein 7.2 g/dL (6.4-8.2)
[2023-04-20 06:25] VITALS: BP 109/54
[2023-04-20] MEDS: ACCU-CHEK COMFORT CURVE STRIP VI SCH ×4 (06:34→22:14)
[2023-04-20] MEDS: InsuLIN REG 1unit/0.01ml Soln (100units/ml) SC SCH ×4 (06:34→22:00)
[2023-04-20] MEDS: LEVOTHYROXINE SODIUM 50 MCG TAB PO SCH (06:34)
[2023-04-20 09:00] VITALS: BP 131/55
[2023-04-20] MEDS: cefTRIAXone 1GM/50ML D5W 50 ML IV SCH (09:05)
[2023-04-20] MEDS: ASPirin-EC 81 mg tab PO SCH (09:06)
[2023-04-20] MEDS: CLOPIDOGREL BISULFATE 75 MG TAB PO SCH (09:07)
[2023-04-20] MEDS: PANTOPRAZOLE 40 MG TAB PO SCH (09:07)
[2023-04-20] MEDS: LISINOPRIL 20 MG TAB PO SCH (09:08)
[2023-04-20] MEDS: METOPROLOL TARTRATE 25 MG TAB PO SCH ×2 (09:36→22:04)
[2023-04-20] MEDS: EZETIMIBE 10 MG PO SCH (10:00)
[2023-04-20 13:00] VITALS: BP 121/88
[2023-04-20 17:00] VITALS: BP 124/74
[2023-04-20 20:00] VITALS: BP 131/68
[2023-04-20 22:00] VITALS: BP 131/68
[2023-04-20] MEDS: SENNA 8.6 MG TAB PO SCH (22:05)
[2023-04-21 05:00] VITALS: BP 120/54
[2023-04-21] MEDS: ACCU-CHEK COMFORT CURVE STRIP VI SCH ×3 (06:10→17:00)
[2023-04-21] MEDS: InsuLIN REG 1unit/0.01ml Soln (100units/ml) SC SCH ×3 (06:10→17:00)
[2023-04-21] MEDS: LEVOTHYROXINE SODIUM 50 MCG TAB PO SCH (06:15)
[2023-04-21 09:00] VITALS: BP 145/50
[2023-04-21] MEDS: metroNIDAZOLE 500MG/100ML 100 ML IV SCH ×3 (09:00→16:00)
[2023-04-21] MEDS: cefTRIAXone 1GM/50ML D5W 50 ML IV SCH (09:02)
[2023-04-21] MEDS: ASPirin-EC 81 mg tab PO SCH (09:06)
[2023-04-21] MEDS: SENNA 8.6 MG TAB PO SCH (09:06)
[2023-04-21] MEDS: PANTOPRAZOLE 40 MG TAB PO SCH (09:06)
[2023-04-21] MEDS: LISINOPRIL 20 MG TAB PO SCH (09:06)
[2023-04-21] MEDS: CLOPIDOGREL BISULFATE 75 MG TAB PO SCH (09:07)
[2023-04-21] MEDS: METOPROLOL TARTRATE 25 MG TAB PO SCH (09:10)
[2023-04-21] MEDS ORDERED: METR-344 PO (09:41)
[2023-04-21] MEDS ORDERED: LEVO500T91 PO (09:41)
[2023-04-21] MEDS: EZETIMIBE 10 MG PO SCH (12:12)
[2023-04-21 13:00] VITALS: BP 101/55
[2023-04-21 15:33] VITALS: BP 145/50
== END 2023-04-21 16:00 | disposition home or self-care (01) | DRG 392 ==
LOC: ER 11:56 → OVERFLOW 18:41 → CENTRAL 04-20 04:42
PROVIDERS: ADMIT Nurse Practitioner Family; ATTEND Hospitalist
DX: K57.32 Diverticulitis of large intestine without perforation or abscess without bleeding (principal); K52.9 Noninfective gastroenteritis and colitis, unspecified; I25.10 Atherosclerotic heart disease of native coronary artery without angina pectoris; I10 Essential (primary) hypertension; E11.9 Type 2 diabetes mellitus without complications; K59.00 Constipation, unspecified; J44.9 Chronic obstructive pulmonary disease, unspecified; K21.9 Gastro-esophageal reflux disease without esophagitis; E78.5 Hyperlipidemia, unspecified; F17.210 Nicotine dependence, cigarettes, uncomplicated; Z88.5 Allergy status to narcotic agent; I25.2 Old myocardial infarction; Z90.49 Acquired absence of other specified parts of digestive tract; Z90.710 Acquired absence of both cervix and uterus; Z82.49 Family history of ischemic heart disease and other diseases of the circulatory system; Z98.61 Coronary angioplasty status
CPT/HCPCS: 36415; 71045; 74176; 80053; 81001; 82962; 83605; 83690; 84484; 85025; 87040; 93005; 96365; 96368; 97163; G0378; J0696; J1815; J2405; J3490

== ENCOUNTER 2023-12-26 08:37 | Day surgery (SDC) | payer OTHER ==
[~2023-12-26] VITALS: Ht 165.1 cm; Wt 79.4 kg
[~2023-12-26 08:37] MED LIST changes: -ACET500T58 PO; -AMOX500T86 PO; -ASPI-498 OR; -BISA1TAB6 PO; +CHOL1CAP58 PO; +CYAN1TAB11 PO; -CYCL-837 PO; +FAMO-12 PO; +FOLI-119 PO; -GARL400T6 PO; -METR500T PO
[2023-12-26] MEDS ORDERED: fentaNYL CITRATE 100 MCG/2 ML VL IV ONE (09:45)
[2023-12-26] MEDS ORDERED: LIDOCAINE VISCOUS 2% 15ML UD PO ONE (09:45)
[2023-12-26] MEDS ORDERED: MIDAZOLAM HCL 2MG/2ML 2ml VIAL (1mg/ml) IV ONE (09:45)
[2023-12-26] MEDS ORDERED: MIDAZOLAM HCL 2MG/2ML 2ml VIAL (1mg/ml) ONE (11:23)
[2023-12-26 11:25] VITALS: BP 108/59; PULSE 71; RESP 21; O2SAT 98
[2023-12-26 11:28] VITALS: BP 123/56; PULSE 55; RESP 17; O2SAT 99
[2023-12-26 11:31] VITALS: BP 174/81; PULSE 75; RESP 22; O2SAT 97
[2023-12-26 11:34] VITALS: BP 148/74; PULSE 64; RESP 12; O2SAT 98
[2023-12-26 11:37] VITALS: BP 154/65; PULSE 73; RESP 19; O2SAT 98
[2023-12-26 11:40] VITALS: BP 127/61; PULSE 64; RESP 20; O2SAT 98
[2023-12-26] MEDS ORDERED: IODIXANOL 320MG/ML 100ML BTL IV ONE (12:05)
[2023-12-26] MEDS ORDERED: LIDOCAINE 2%HCL (LOCAL ANESTH.) INJ 20ML MDV ONE (12:05)
[2023-12-26] MEDS ORDERED: HEPARIN SODIUM (PORCINE) 5000 UNITS/ML 1ML VIAL ONE (12:06)
[2023-12-26] MEDS ORDERED: VERAPAMIL 2.5MG/ML INJ 2ML VIAL IV ONE (12:06)
[2023-12-26] MEDS ORDERED: ANGIOMAX 250 MG VIAL IV ONE (12:06)
[2023-12-26] MEDS ORDERED: SODIUM CHL 0.9% 0 ML ONE (12:06)
== END 2023-12-26 15:05 | disposition home or self-care (01) ==
LOC: CATH 08:37
PROVIDERS: ATTEND Internal Medicine
DX: I35.0 Nonrheumatic aortic (valve) stenosis (principal); I25.10 Atherosclerotic heart disease of native coronary artery without angina pectoris; I05.2 Rheumatic mitral stenosis with insufficiency; Z88.8 Allergy status to other drugs, medicaments and biological substances
CPT/HCPCS: 93005; 93312; 93454; C1725; C1894; J1644; J2250; J3010; J7030; Q9967; 99152; 99153

== ENCOUNTER 2024-07-06 09:08 | Emergency (ER) | payer OTHER ==
[~2024-07-06] VITALS: Ht 165.1 cm; Wt 78.3 kg
[2024-07-06 09:46] VITALS: BP 141/88; PULSE 58; RESP 17; TEMP 98.7; O2SAT 100
[2024-07-06 10:52] LABS: Basophils # (auto) 0.1 10 ^3/uL (0-0.2); Basophils % (auto) 0.9 % (0.0-2.0); Eosinophils # (auto) 0.2 10 ^3/uL (0-0.8); Hematocrit 35.9 % (36.0-46.0); Hemoglobin 12.7 g/dL (12.2-16.2); Lymphocytes # (auto) 1.4 10 ^3/uL (0.4-5.4); Lymphocytes % (auto) 23.2 % (10.0-50.0); Mean Corpuscular Hgb Conc. 35.3 g/dL (32.0-36.0); Mean Corpuscular Volume 99.1 fL (80.0-100.0); Monocytes # (auto) 0.7 10 ^3/uL (0-1.3); Monocytes % (auto) 11.2 % (0.0-12.0); Neutrophils # (auto) 3.9 10 ^3/uL (1.6-8.6); Neutrophils % (auto) 61.7 % (37.0-80.0); Platelet Count (auto) 288 10^3/uL (140-450); Red Blood Cells 3.62 10^6/uL (4.0-5.20); Red Cell Distribution Width 13.5 % (11.8-14.3); White Blood Cell 6.3 10^3/uL (4.4-10.8)
[2024-07-06 11:23] LABS: Alanine Aminotransferase 16 U/L (7-40); Albumin 4.6 g/dL (3.2-4.8); Alkaline Phosphatase 100 U/L (46-116); Anion Gap 6 (5-15); Aspartate Aminotransferase 14 U/L (13-40); BUN/Creatinine Ratio 11.1 (10.0-20.0); Bilirubin, Total 0.5 mg/dL (0.2-1.0); Blood Urea Nitrogen 13 mg/dL (9-23); Calcium 10.2 mg/dL (8.7-10.4); Carbon Dioxide 21 mmol/L (20-30); Chloride 106 mmol/L (98-107); Glucose 157 mg/dL (74-106); Potassium 4.3 mmol/L (3.5-5.1); Sodium 133 mmol/L (136-145); Total Protein 7.3 g/dL (5.7-8.2)
[2024-07-06 11:27] LABS: Lipase 29 U/L (12-53)
[2024-07-06 12:17] LABS: Urine Bacteria FEW /hpf (None Seen); Urine Blood Negative /uL (Negative); Urine Clarity Clear (Clear); Urine Color Light-Yellow (Yellow); Urine Protein, UAD Negative (Negative); Urine Urobilinogen Normal (Negative); Urine WBC <1 /hpf (0 - 5); Urine pH 6.5 (5.0-9.0)
[2024-07-06] MEDS ORDERED: NAP500T GT (12:50)
== END 2024-07-06 13:54 | disposition home or self-care (01) ==
LOC: ER 09:08
DX: R10.32 Left lower quadrant pain (principal); J44.9 Chronic obstructive pulmonary disease, unspecified; K21.9 Gastro-esophageal reflux disease without esophagitis; F17.210 Nicotine dependence, cigarettes, uncomplicated; F12.10 Cannabis abuse, uncomplicated; E11.9 Type 2 diabetes mellitus without complications; E78.5 Hyperlipidemia, unspecified; I10 Essential (primary) hypertension; Z90.710 Acquired absence of both cervix and uterus; Z88.6 Allergy status to analgesic agent
CPT/HCPCS: 36415; 74176; 80053; 81001; 83690; 85025

== ENCOUNTER 2024-08-09 19:07 | Emergency (ER) | payer OTHER ==
[~2024-08-09] VITALS: Ht 165.1 cm; Wt 81.8 kg
[2024-08-09] MEDS: GOLYTELY 4L KIT PO ONE (03:10)
[~2024-08-09 19:07] MED LIST changes: +NAP500T GT
[2024-08-09 22:09] LABS: Basophils # (auto) 0.1 10 ^3/uL (0-0.2); Basophils % (auto) 0.4 % (0.0-2.0); Eosinophils # (auto) 0.2 10 ^3/uL (0-0.8); Hemoglobin 11.4 g/dL (12.2-16.2)
[2024-08-09 22:12] LABS: Eosinophils % (auto) 1.2 % (0.0-7.0); Hematocrit 33.8 % (36.0-46.0); Lymphocytes # (auto) 1.8 10 ^3/uL (0.4-5.4); Lymphocytes % (auto) 12.2 % (10.0-50.0); Mean Corpuscular Hemoglobin 33.4 pg (28.0-32.0); Mean Corpuscular Hgb Conc. 33.7 g/dL (32.0-36.0); Monocytes # (auto) 1.8 10 ^3/uL (0-1.3); Neutrophils # (auto) 10.8 10 ^3/uL (1.6-8.6); Neutrophils % (auto) 74.2 % (37.0-80.0); Platelet Count (auto) 300 10^3/uL (140-450); Red Blood Cells 3.41 10^6/uL (4.0-5.20); Red Cell Distribution Width 13.2 % (11.8-14.3); White Blood Cell 14.6 10^3/uL (4.4-10.8)
[2024-08-09 22:26] LABS: Alanine Aminotransferase 11 U/L (7-40); Albumin 4.7 g/dL (3.2-4.8); Alkaline Phosphatase 131 U/L (46-116); Anion Gap 7 (5-15); Aspartate Aminotransferase 19 U/L (13-40); BUN/Creatinine Ratio 11.1 (10.0-20.0); Blood Urea Nitrogen 12 mg/dL (9-23); Calcium 10.4 mg/dL (8.7-10.4); Carbon Dioxide 23 mmol/L (20-31); Chloride 101 mmol/L (98-107); Glucose 106 mg/dL (74-106); Lipase 26 U/L (12-53); Potassium 3.9 mmol/L (3.5-5.1); Sodium 131 mmol/L (136-145)
[2024-08-09 22:27] LABS: Bilirubin, Total 1.3 mg/dL (0.2-1.0); Total Protein 7.5 g/dL (5.7-8.2)
[2024-08-09 23:13] LABS: Urine Bacteria FEW /hpf (None Seen); Urine Blood Negative /uL (Negative); Urine Clarity Clear (Clear); Urine Color Yellow (Yellow); Urine Protein, UAD TRACE (Negative); Urine Specific Gravity 1.016 (1.001-1.035); Urine Urobilinogen 2 mg/dL (Negative); Urine WBC 1 /hpf (0 - 5); Urine pH 6.5 (5.0-9.0)
[2024-08-10 03:10] VITALS: BP 127/48; PULSE 82; RESP 16; O2SAT 95
[2024-08-10] MEDS: SODIUM CHLORIDE 0.9% 500 ML IV ONE (03:14)
== END 2024-08-10 03:11 | disposition home or self-care (01) ==
LOC: ER 19:07
DX: K59.00 Constipation, unspecified (principal); I10 Essential (primary) hypertension; I25.10 Atherosclerotic heart disease of native coronary artery without angina pectoris; J44.9 Chronic obstructive pulmonary disease, unspecified; E11.9 Type 2 diabetes mellitus without complications; K21.9 Gastro-esophageal reflux disease without esophagitis; E78.5 Hyperlipidemia, unspecified; I25.2 Old myocardial infarction; F17.210 Nicotine dependence, cigarettes, uncomplicated; F15.90 Other stimulant use, unspecified, uncomplicated; Z90.49 Acquired absence of other specified parts of digestive tract; Z90.710 Acquired absence of both cervix and uterus; Z95.2 Presence of prosthetic heart valve; Z88.8 Allergy status to other drugs, medicaments and biological substances; Z79.899 Other long term (current) drug therapy; Z79.1 Long term (current) use of non-steroidal anti-inflammatories (NSAID)
CPT/HCPCS: 36415; 74176; 80053; 81001; 83605; 83690; 84484; 85025